=== PATIENT | male | born 1995 | race Caucasian/White ===

== ENCOUNTER 2022-12-06 23:36 | Emergency (ER) | payer OTHER ==
[~2022-12-06] VITALS: Ht 175.3 cm; Wt 90.7 kg
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
--- NOTE | 2022-12-07 06:32 | NUR ---
Patient discharged to home in stable condition. Written and verbal after care instructions given. Patient verbalizes understanding of instruction. Pt ambulatory with a steady gait
[2022-12-07 06:33] VITALS: BP 113/58
== END 2022-12-07 06:35 | disposition home or self-care (01) ==
LOC: ER 23:50
DX: T22.111A Burn of first degree of right forearm, initial encounter (principal); R51.9 Headache, unspecified; R42 Dizziness and giddiness; X08.8XXA Exposure to other specified smoke, fire and flames, initial encounter; V99.XXXA Unspecified transport accident, initial encounter; Y93.89 Activity, other specified; Y92.89 Other specified places as the place of occurrence of the external cause; Y99.8 Other external cause status
CPT/HCPCS: 70450-TC; 72125-TC